=== PATIENT | male | born 2005 | race African-American/Black ===

== ENCOUNTER 2024-02-17 21:37 | Emergency (ER) | payer MEDICAID, OTHER ==
[~2024-02-17] VITALS: Ht 165.1 cm; Wt 68.2 kg
--- NOTE | 2024-02-17 21:56 | ED.PDOC ---
Musculoskeletal HPI Comments 18-year-old male who came to ER via EMS for left forearm pain. Patient was snowboarding earlier when he lost control, and fell on his outstretched left arm. Noted deformity on his left forearm. Patient unsure if there is loss of consciousness. Chief Complaint: Upper Extremity Time Seen by MD: 21:55 Reviewed Notes: Wine Steward Notes Allergies: Coded Allergies: No Known Drug Allergy (Verified Allergy, Unknown, 02/17/24) Information Source: Patient, Emergency Med Personnel Mode of Arrival: EMS Location: Left Extremity Location: Forearm Timing: Minutes Prehospital treatment: Treatment (Fentanyl) Severity: Moderate Able to Move Extremity: Yes Pain: Moderate Hand Dominance: Right Mechanism: FOOSH Circumstances: Sporting, Fall Onset of Symptoms: After Trauma Symptoms: Swelling, Pain Associated signs and symptoms: Forearm pain (Left) Past Medical History PAST MEDICAL HISTORY: Denies Surgical History: Denies all surgeries Family History Family History: Reviewed,noncontributory to illness Social History Smoker: Non-Smoker Alcohol: Denies ETOH Use Drugs: Denies Drug Use Lives In: Home Constitutional: denies: chills, diaphoresis, fatigue, fever, malaise, sweats, weakness, others EENTM: denies: blurred vision, double vision, ear bleeding, ear discharge, ear drainage, ear pain, ear ringing, eye pain, eye redness, hearing loss, mouth wendy n, mouth swelling, nasal discharge, nose bleeding, nose congestion, nose pain, photophobia, tearing, throat pain, throat swelling, voice changes, others Respiratory: denies: cough, hemoptysis, orthopnea, SOB at rest, shortness of breath, SOB with excertion, stridor, wheezing, others Cardiovascular: denies: chest pain, dizzy spells, diaphoresis, Dyspnea on exertion, edema, irregular heart beat, left arm pain, lightheadedness, palpitations, PND, syncope, others Gastrointestinal: denies: abdomen distended, abdominal pain, blood streaked bowels, constipated, diarrhea, dysphagia, difficulty swallowing, hematemesis, melena, nausea, poor appetite, poor fluid intake, rectal bleeding, rectal pain, vomiting, others Genitourinary: denies: burning, dysuria, flank pain, frequency, hematuria, incontinence, penile discharge, penile sore, pain, testicle pain, testicle swelling, urgency, others Neurological: denies: dizziness, fainting, headache, left sided numbness, left sided weakness, numbness, paresthesia, pre-existing deficit, right sided numbness, right sided weakness, seizure, speech problems, tingling, tremors, weakness, others Musculoskeletal: reports: others (left forearm); denies: back pain, gout, joint pain, joint swelling, muscle pain, muscle stiffness, neck pain Integumetry: denies: bruises, change in color, change in hair/nails, dryness, laceration, lesions, lumps, rash, wounds, others Allergic/Immunocompromised: denies: Difficulty Healing, Frequent Infections, Hives, Itching, others Hematologic/Lymphatic: denies: anemia, blood clots, easy bleeding, easy bruising, swollen glands, others Endocrine: denies: excessive hunger, excessive sweating, excessive thirst, excessive urination, flushing, intolerance to cold, intolerance to heat, unexplained weight gain, unexplained weight loss, others Psychiatric: denies: anxiety, bipolar disorder, depression, hopeless, panic disorder, schizophrenia, sleepless, suicidal, others Physical Exam General Appearance: No Apparent Distress, Normal HEENT: Normal ENT Inspection, Pharynx Normal, TMs Normal Neck: Full Range of Motion, Non-Tender, Normal, Normal Inspection Respiratory: Chest Non-Tender, Lungs Clear, No Accessory Muscle Use, No Respiratory Distress, Normal Breath Sounds Cardiovascular: No Edema, No JVD, No Murmur, No Gallop, Normal Peripheral Pulses, Regular Rate/Rhythm Breast Exam: Deferred Gastrointestinal: No Organomegaly, Non Tender, No Pulsatile Mass, Normal Bowel Sounds, Soft Genitalia: Deferred Pelvic: Deferred Rectal: Deferred Extremities: No calf tenderness, Normal capillary refill, Normal inspection, Normal range of motion, Non-tender, No pedal edema Musculoskeletal : Apperance: Normal Neurologic: Alert, dolphin trainer II-XII nml as Tested, No Motor Deficits, Normal Affect, Normal Mood, No Sensory Deficits Cerebellar Function: Normal Reflexes: Normal Skin: Dry, Normal Color, Warm Lymphatic: No Adenopathy Was a procedure done? Was a procedure done?: Yes Sedation Sedation?: No Informed consent obtained: Yes Reduction Indication: Fracture Sedation: Consents obtained, Radial, Nerve Block Intra-articular anesthetic teodoro: Yes Nerve Block: Radial Post-reduction x-ray show: Reduction, Good Alignment Informed consent obtained: Yes Risks/benefits/alt described: Yes Differential Diagnosis EXT Differential Diagnosis: Fracture, Sprain, Dislocation, Strain X-Ray, Labs, Meds, VS Vital Signs Date Time Temp Pulse Resp B/P (MAP) Pulse Ox O2 Delivery O2 Flow Rate FiO2 02/17/24 23:03 80 18 117/70 02/17/24 22:15 72 15 98 Room Air* 0 21 02/17/24 21:43 98.7 91 18 114/69 (84) 99 Current Medications Medications (Trade) Dose Ordered Sig/Ejssica Route Start Time Stop Time Status Last Admin Lidocaine HCl (Xylocaine 1%) 10 ml ONCE ONCE ID 02/17/24 22:45 02/17/24 22:46 DC 02/17/24 22:45 Hydromorphone HCl (Dilaudid Injection) 1 mg ONCE ONCE IV 02/17/24 23:00 02/17/24 23:01 DC 02/17/24 23:03 Ondansetron HCl (Zofran) 4 mg ONCE ONCE IV 02/17/24 23:00 02/17/24 23:01 DC 02/17/24 23:12 Time of 1ST Reevaluation: 21:52 Reevaluation 1ST: Unchanged Time of 2ND Reevaluation: 22:30 Reevaluation 2ND: Improved Patient Education/Counseling: Diagnosis, Treatment Family Education/Counseling: No Family Present Departure 1 Departure Time of Disposition: 22:30 Impression: Primary Impression: Abrasion of chin Additional Impressions: Displaced fracture of left ulna styloid process, initial encounter for closed fracture Fracture of left distal radius Head injury Disposition: 01 HOME / SELF CARE / HOMELESS Condition: Stable Discharged With: Self Critical Care Note Critical Care Time?: No Stability Stability form required: No Heart Score Heart Score: Heart Score Response (Comments) Value History N/A 0 EKG N/A 0 Age N/A 0 Risk Factors N/A 0 Troponin N/A 0 Total 0 I personally scribed for JEANINE WINTERS MD ([email or web address]) on 02/17/24 at 21:56. Electronically submitted by Javid Pompa ([email or web address]). JEANINE WINTERS MD Feb 17, 2024 21:56
[2024-02-17 22:15] VITALS: PULSE 72; RESP 15; O2SAT 98
--- NOTE | 2024-02-17 22:29 | DVH ---
CLINICAL HISTORY: Head pain / injury TECHNIQUE: Helical imaging carried out from skull base to vertex without intravenous contrast. This e xam was performed according to our departmental dose optimization program. Up-to-date CT equipment an d radiation dose reduction techniques are utilized as appropriate. [[employer] Exposure Report] COMPARISON: None FINDINGS: Note is made of cavum septum pellucidum. The ventricles and subarachnoid spaces are normal in size and configuration. There is no midline ronnie ft or mass effect. The niño white matter interfaces are maintained. The basal cisterns are patent. Th ere is no evidence of acute intracranial hemorrhage or extra-axial fluid collection. The mastoid air cells and visualized paranasal sinuses are well-aerated aside from mucous retention cysts or polyps i n the bilateral maxillary sinuses. IMPRESSION: No acute intracranial abnormality.
--- NOTE | 2024-02-17 22:32 | DVH ---
CLINICAL HISTORY: neck pain / injury TECHNIQUE: CT exam of the cervical spine was performed without intravenous contrast. This exam was pe rformed according to our departmental dose optimization program. Up-to-date CT equipment and radiatio n dose reduction techniques are utilized as appropriate. COMPARISON: None FINDINGS: There is normal cervical alignment. The vertebral body heights are maintained. No acute cervical frac ture or subluxation is identified. No significant central or neural foraminal narrowing is identified . The paraspinous soft tissues are unremarkable. The lung apices are clear. IMPRESSION: No acute fracture or traumatic malalignment.
[2024-02-17] MEDS: LIDOCAINE 1% HCL (LOCAL ANESTH.) INJ 20ML MDV ID ONE (22:45)
--- NOTE | 2024-02-17 22:54 | DVH ---
CLINICAL INDICATION: snowboard accident, pain TECHNIQUE: 4 radiographic views of the left wrist were obtained. Comparison: None FINDINGS/IMPRESSION: Comminuted impacted intra-articular fracture of the distal radius is noted. There is also a displaced fracture of the styloid process of the ulna. The visualized joint space is well maintained. The alignment is anatomical. There is no radiopaque foreign body.
--- NOTE | 2024-02-17 22:55 | DVH ---
CLINICAL INDICATION: pain TECHNIQUE: 3 radiographic views of the left wrist were obtained. Comparison: None FINDINGS/IMPRESSION: Angulated impacted comminuted intra-articular fracture of the distal radius is seen with a displaced fracture through the styloid process of the ulna. The visualized joint space is well maintained. The alignment is anatomical. There is no radiopaque foreign body.
[2024-02-17 23:03] VITALS: BP 117/70; PULSE 80; RESP 18
[2024-02-17] MEDS: HYDROmorphone HCL 2 MG/ML VL/or syr IV ONE (23:03)
[2024-02-17] MEDS: ONDANSETRON HCL 4 MG/2 ML VIAL IV ONE (23:12)
--- NOTE | 2024-02-18 00:03 | DVH ---
CLINICAL INDICATION: fracture reduction TECHNIQUE: XY L FOREARM XRAY, XY L WRIST 2 VIEW XRAY Comparison: XY L FOREARM XRAY on DOS: 02/17/24 FINDINGS/IMPRESSION: : 1. Placement of the splint about the left forearm and wrist. 2. Comminuted distal left radius metadiaphysis fracture with intra-articular extension into the radio carpal joint, slightly impacted. Improved alignment since prior. 3. Ulnar styloid avulsion fracture fragment. 4. Soft tissue swelling about the distal left forearm and left wrist. 5. Radiocarpal joint is maintained.
== END 2024-02-18 00:57 | disposition home or self-care (01) ==
LOC: ER 21:37 → EDBD 21:37 → ER 02-18 00:57
DX: S52.612A Displaced fracture of left ulna styloid process, initial encounter for closed fracture (principal); S52.502A Unspecified fracture of the lower end of left radius, initial encounter for closed fracture; S00.81XA Abrasion of other part of head, initial encounter; Z88.5 Allergy status to narcotic agent; V00.311A Fall from snowboard, initial encounter; Y93.23 Activity, snow (alpine) (downhill) skiing, snowboarding, sledding, tobogganing and snow tubing; Y92.89 Other specified places as the place of occurrence of the external cause; Y99.8 Other external cause status
CPT/HCPCS: 25605; 70450; 72125; 73090; 73100; 96374; 96375; 99285; J1171; J2003; J2405